=== PATIENT | male | born 1975 | race Caucasian/White ===

== ENCOUNTER 2017-05-12 22:59 | Emergency (ER) | payer OTHER ==
[2017-05-12] MEDS ORDERED: KETOROLAC TROMETHAMINE 30 MG/1 ML VIAL IVPUSH ONE (23:42)
--- NOTE | 2017-05-12 23:45 | PDOC ---
History of Present Illness - General Chief Complaint: Chest Pain Stated Complaint: CHEST PAIN Time Seen by Provider: 05/12/17 23:26 - History of Present Illness Initial Comments: 05/12/17 23:53 "The patient is a 42 year old male with no significant past medical history who presents to the ED complaining of several weeks of left sided chest pain. He describes his chest pain as stabbing, and worse with positional changes, nonmigrating, nonradiating. He denies any shortness of breath or palpitations. Denies nausea, vomiting, or diarrhea. No fever or chills. No leg swelling, recent travel, or cigarette smoking. States he recently recovered from the flu, but has been experiencing his current chest pain since prior to the onset of his flu. He states he called his PCP today, who sent him to the ED for evaluation. SHx: Endorses smoking marijuana, denies cigarette use. " Past History - Past Medical History Allergies/Adverse Reactions: Allergies Allergy/AdvReac Type Severity Reaction Status Date / Time No Known Allergies Allergy Verified 05/13/17 00:48 Home Medications: Ambulatory Orders NK [No Known Home Medication] 05/13/17 COPD: No - Suicide/Smoking/Psychosocial Hx Smoking History: Never smoked Have you smoked in the past 12 months: No Information on smoking cessation initiated: No Hx Alcohol Use: No Drug/Substance Use Hx: Yes Substance Use Type: Marijuana Review of Systems - Review of Systems Comments:: 05/12/17 23:55 "GENERAL/CONSTITUTIONAL: No fever or chills. No weakness. HEAD, EYES, EARS, NOSE AND THROAT: No change in vision. No ear pain or discharge. No sore throat. CARDIOVASCULAR: +L chest pain. No palpitations or shortness of breath. No peripheral edema. RESPIRATORY: No cough, wheezing, or hemoptysis. GASTROINTESTINAL: No nausea, vomiting, diarrhea or constipation. GENITOURINARY: No dysuria, frequency, or change in urination. MUSCULOSKELETAL: No joint or muscle swelling or pain. No neck or back pain. SKIN: No rash NEUROLOGIC: No headache, vertigo, loss of consciousness, or change in strength/ sensation. ENDOCRINE: No increased thirst. No abnormal weight change. HEMATOLOGIC/LYMPHATIC: No anemia, easy bleeding, or history of blood clots. ALLERGIC/IMMUNOLOGIC: No hives or skin allergy. " *Physical Exam - Vital Signs Last Vital Signs Temp Pulse Resp BP Pulse Ox 98.4 F 83 18 133/78 99 05/12/17 23:05 05/12/17 23:05 05/12/17 23:05 05/12/17 23:05 05/12/17 23:05 - Physical Exam Comments: 05/12/17 23:55 "GENERAL: Awake, alert, and fully oriented, in no acute distress HEAD: No signs of trauma EYES: PERRLA, EOMI, sclera anicteric, conjunctiva clear ENT: Auricles normal inspection, hearing grossly normal, nares patent, oropharynx clear without exudates. Moist mucosa NECK: Nontender, no stepoffs, Normal ROM, supple, no lymphadenopathy, JVD, or masses LUNGS: +L chest tenderness to palpation. Breath sounds equal, clear to auscultation bilaterally. No wheezes, and no crackles HEART: Regular rate and rhythm, normal S1 and S2, no murmurs, rubs or gallops ABDOMEN: Soft, nontender, normoactive bowel sounds. No guarding, no rebound. No masses EXTREMITIES: Normal range of motion, no edema. No clubbing or cyanosis. No cords, erythema, or tenderness NEUROLOGICAL: Cranial nerves II through XII intact. 5/5 strength and sensation in all extremities, Normal speech, normal gait, normal cerebellar function SKIN: Warm, Dry, normal turgor, no rashes or lesions noted. " Heart Score/ECG Review - History History: Slightly suspicious - Electrocardiogram EKG: Normal - Age Age: </= 45 - Risk Factors Based on the list above the patient has:: No risk factors known - Troponin Troponin: </= normal limit - Score Heart Score - Total: 0 - ECG Impressions Comment:: 05/13/17 00:00 NSR, no CHARANJIT/STDs, no TWIs, axis wnl, intervals wnl, rate 82 ED Treatment Course - LABORATORY CBC & Chemistry Diagram: 05/13/17 00:44 05/13/17 00:44 - ADDITIONAL ORDERS Additional order review: Laboratory Results 05/13/17 00:44 Sodium 141 Potassium 3.7 Chloride 106 Carbon Dioxide 31 Anion Gap 4 L BUN 13 Creatinine 0.8 Creat Clearance w eGFR > 60 Random Glucose 76 Calcium 8.4 L Total Bilirubin 0.4 AST 24 ALT 39 Alkaline Phosphatase 54 Total Protein 7.3 Albumin 4.1 02/23/18 00:44 RBC 4.32 MCV 89.9 MCHC 34.5 RDW 13.3 MPV 10.1 Neutrophils % 51.9 Lymphocytes % 33.2 Monocytes % 8.9 Eosinophils % 5.5 H Basophils % 0.5 - RADIOLOGY Radiology Studies Ordered: Category Date Time Status CHEST CT WITHOUT CONTRAST [CT] Stat CT Scan 05/13/17 00:02 Taken Medical Decision Making - Medical Decision Making 05/12/17 23:43 42 M with L sided chest wall pain. Likely msk - muscle sprain vs rib fx. Will r/ o ACS with EKG and trop. No abnormal lung sounds to suggest PNA/asthma/COPD. Pt with PERC score 0, making PE unlikely. No clinical s/s DVT. - Labs, trop - CT chest non-con to r/o fx - Toradol 05/13/17 01:25 CT negative for ptx, no rib fxs, no PNA 05/13/17 01:47 EKG nonischemic, HEART score 0 05/13/17 01:53 Pt reassessed s/p toradol - now with significant improvement in pain. Likely msk pain. Pt well appearing, vitals normal, clinically stable for DC. I discussed the physical exam findings, ancillary test results and final diagnoses with the patient. I answered all of the patient's questions. The patient was satisfied with the care received and felt comfortable with the discharge plan and treatment plan. The patient agrees to follow up with the primary care physician within 24-72 hours. *DC/Admit/Observation/Transfer Diagnosis at time of Disposition: Chest wall pain - Discharge Dispostion Disposition: HOME - Referrals Referrals: Lissa Jackson MD [Primary Care Provider] - - Patient Instructions Printed Discharge Instructions: DI for Atypical Chest Pain Additional Instructions: Take tylenol or motrin as needed for your pain. If you experience worsening pain, shortness of breath, fevers, or any other concerning symptoms, return to the ER immediately. Otherwise, follow up with your primary doctor within 1 week. - Post Discharge Activity - Attestations Physician Attestion: 05/13/17 01:25 I, Dr. Hipolito Ortiz MD, attest that this document has been prepared under my direction and personally reviewed by me in its entirety. I further attest, that it accurately reflects all work, treatment, procedures and medical decision -making performed by me.
[2017-05-12 23:46] VITALS: BP 133/78; PULSE 83; TEMP 98.4; BMI 25.0
[2017-05-13] MEDS ORDERED: KETOROLAC TROMETHAMINE 30 MG/1 ML VIAL ONE (00:32)
[2017-05-13 01:06] LABS: BASO % 0.5 % (0-2.0); EOS % 5.5 % (0-4.5); HEMATOCRIT 38.8 % (35.4-49); HEMOGLOBIN 13.4 GM/dL (11.7-16.9); LYMPH % 33.2 % (8-40); MCHC 34.5 g/dl (32.0-35.9); MEAN CELL VOLUME 89.9 fl (80-96); MEAN PLT VOLUME 10.1 fl (7.5-11.1); MONO % 8.9 % (3.8-10.2); NEUT % 51.9 % (42.8-82.8); PLATELET COUNT 210 K/MM3 (134-434); RBC 4.32 M/mm3 (4.00-5.60); RDW 13.3 % (11.9-15.9); WHITE BLOOD COUNT 4.8 K/mm3 (4.0-10.0)
[2017-05-13 01:31] LABS: ALBUMIN 4.1 g/dl (3.4-5.0); ALK PHOS 54 U/L (45-117); ANION GAP 4 (8-16); BILIRUBIN,TOTAL 0.4 mg/dL (0.2-1.0); BLOOD UREA NITROGEN 13 mg/dL (7-18); CALCIUM 8.4 mg/dL (8.5-10.1); CHLORIDE 106 mmol/L (98-107); CO2 31 mmol/L (21-32); CREATININE 0.8 mg/dL (0.7-1.3); GLUCOSE,RANDOM 76 mg/dL (74-106); POTASSIUM 3.7 mmol/L (3.5-5.1); SGOT/AST 24 U/L (15-37); SGPT/ALT 39 U/L (12-78); SODIUM 141 mmol/L (136-145); TOT PROT 7.3 g/dl (6.4-8.2)
--- NOTE | 2017-05-17 13:26 | EKG ---
Test Reason : Blood Pressure : / mmHG Vent. Rate : 082 BPM Atrial Rate : 082 BPM P-R Int : 152 ms QRS Dur : 082 ms QT Int : 336 ms P-R-T Axes : 052 044 044 degrees QTc Int : 392 ms NORMAL SINUS RHYTHM NORMAL ECG NO PREVIOUS ECGS AVAILABLE Confirmed by MD Vito, ([id number]) on 05/17/2017 1:26:24 PM Referred By: Confirmed By:Daniel Padron MD
== END 2017-05-13 02:37 | disposition home or self-care (01) ==
LOC: JER 22:59
PROC: 3E0333Z Introduction of Anti-inflammatory into Peripheral Vein, Percutaneous Approach (ICD-10-PCS; principal; 2017-05-12)
DX: R07.89 Other chest pain (principal)
CPT/HCPCS: 36415; 71250-TC; 80053; 82550; 82553; 84484; 85025; 93005; 93010; 99282-25